=== PATIENT | female | born 1990 | race Caucasian/White ===

== ENCOUNTER 2018-07-09 10:24 | Inpatient (IN) ==
[2018-07-09] MEDS ORDERED: MEPERIDINE 50 MG/1 ML VIAL IV PRN (10:48)
[2018-07-09] MEDS ORDERED: ONDANSETRON 4 MG/2 ML VIAL IV PRN (10:48)
[2018-07-09] MEDS ORDERED: OXYTOCIN/LR 20 UNIT/1,000 ML BAG IV SCH (11:00)
[2018-07-09] MEDS ORDERED: LACTATED RINGERS 1,000 ML IV SCH (11:00)
[2018-07-09 11:16] LABS: Basophils % 0.3 % (0.0-0.8); Eosinophils # 0.1 10*3/uL (0.0-0.87); Eosinophils % 1.4 % (0.00-10.9); Hematocrit 33.8 VOL% (35.7-47.0); Hemoglobin 11.4 GM/DL (12.0-16.0); Immature Granulocytes % 0.2 %; Immature Granulocytes Absolute 0.02 #; Lymphocytes % 22.1 % (21.3-54.2); Mean Corpuscular HGB Conc 33.7 GM/DL (32-36); Mean Corpuscular Hemoglobin 30 PG (27-34); Mean Corpuscular Volume 88.9 FL (87-102); Mean Platelet Volume 10.3 FL (9.6-12.0); Monocytes # 0.6 10*3/uL (0.11-0.8); Monocytes % 6.8 % (1.7-12.7); Neutrophils # 6.4 10*3/uL (1.4-7.4); Neutrophils % 69.2 % (38.7-73.9); Platelet Count 273 T/CUMM (130-400); Red Cell Distribution Width 13.4 % (9.3-17.3); White Blood Count 9.2 T/CUMM (4-12)
[2018-07-09 11:42] LABS: Alanine Aminotransferase 9 U/L (13-56); Albumin 2.6 G/DL (3.4-5.0); Alkaline Phosphatase 114 U/L (45-117); Aspartate Amino Transferase 12 U/L (0-37); Bilirubin,Total < 0.39 MG/DL (0.2-1.0); Blood Urea Nitrogen 10 MG/DL (7-18); Calcium 8.9 MG/DL (8.5-10.1); Glucose 89 MG/DL (74-106); Osmolality,Calculated 270.8 MOS/KG (273-304); Potassium 3.9 MMOL/L (3.5-5.1); Sodium 137 MMOL/L (136-145); Total Protein 6.9 G/DL (6.4-8.3); Uric Acid 6.1 MG/DL (2.6-6.0)
[2018-07-09] MEDS ORDERED: INFLUENZA VIRUS VACCINE 0.5 ML SYRINGE IM ONE (11:45)
[2018-07-09] MEDS ORDERED: LACTATED RINGERS 1,000 ML IV ONE (11:49)
[2018-07-09] MEDS ORDERED: diphenhydrAMINE 50 MG/1 ML VIAL IV PRN ×2 (11:49)
[2018-07-09] MEDS ORDERED: NALOXONE 0.4 MG/ML VIAL IV PRN (11:49)
[2018-07-09] MEDS ORDERED: FAMOTIDINE 20 MG/2 ML VIAL IV ONE (11:49)
[2018-07-09] MEDS ORDERED: hydrOXYzine HCL 25 MG/1 ML VIAL IM PRN (11:49)
[2018-07-09] MEDS ORDERED: ePHEDrine 50 MG/ML AMP IV PRN (11:49)
[2018-07-09] MEDS ORDERED: PROMETHAZINE 25 MG/1 ML VIAL IM ONE (11:49)
[2018-07-09] MEDS ORDERED: CITRIC ACID/SODIUM CITRATE 30 ML UDCUP PO ONE (11:49)
[2018-07-09] MEDS ORDERED: fentaNYL 2 MCG/ROPIV 0.2% EPID 100 ML EPIDURAL SCH (12:00)
[2018-07-09] MEDS ORDERED: LIDOCAINE 1% 50 ML VIAL ONE (14:30)
[2018-07-09] MEDS ORDERED: METHYLERGONOVINE 0.2 MG/1 ML AMP ONE (14:30)
[2018-07-09] MEDS ORDERED: miSOPROStol 200 MCG TABLET ONE (14:30)
[2018-07-09 14:40] LABS: Apearance,Urine Slightly Hazy (Clear); Bacteria,Urine Occasional /HPF (Few); Bilirubin,Urine Negative (Negative); Blood, Urine Negative (Negative); Glucose,Urine (UA) Negative (Negative); Ketones,Urine 5 mg/dL (Negative); Mucus,Urine Occasional /LPF (Occasional); Nitrite,Urine Positive (Negative); Protein,Urine Negative; Squamous Epithelial Cell,Urine Occasional /HPF (0-10); Transitional Epi Cells,Urine Occasional /HPF (<1); Urine Color Yellow (Yellow); Urine Specific Gravity 1.011 (1.001-1.035); Urine Urobilinogen < 2.0 EU/DL (0.2-1.0); WBC,Urine 1 /HPF (0-6)
[2018-07-09 15:20] LABS: Cord Venous Blood HCO3 19.9 MMOL/L; Cord Venous Blood PO2 24.4
[2018-07-09 15:23] LABS: Cord Arterial Blood HCO3 17.4 MMOL/L
[2018-07-09] MEDS ORDERED: OXYTOCIN/LR 20 UNIT/1,000 ML BAG IV ONE (17:10)
[2018-07-09] MEDS ORDERED: oxyCODONE/ACETAMINOPHEN 5-325 MG TABLET PO PRN ×2 (19:04)
[2018-07-09] MEDS ORDERED: ACETAMINOPHEN/CODEINE 300-30 MG TABLET PO PRN (19:04)
[2018-07-09] MEDS ORDERED: LANOLIN 50% CREAM 0.3 OZ TUBE TOP PRN (19:04)
[2018-07-09] MEDS ORDERED: MEASLES/MUMPS/RUBELLA VACCINE 0.5 ML VIAL SUBCUT ONE (19:04)
[2018-07-09] MEDS ORDERED: WITCH HAZEL PADS 100/JAR TOP PRN (19:04)
[2018-07-09] MEDS ORDERED: HYDROCORTISONE 2.5% RECTAL CREAM 30 GM TUBE TOP PRN (19:04)
[2018-07-09] MEDS ORDERED: IBUPROFEN 800 MG TABLET PO PRN (19:04)
[2018-07-09] MEDS ORDERED: RHO(D) IMMUNE GLOBULIN 300 MCG SYRINGE IM ONE (19:04)
[2018-07-09] MEDS ORDERED: BISACODYL 10 MG SUPP RECTAL PRN (19:04)
[2018-07-09] MEDS ORDERED: DIPH/TET/ACEL PERT BOOSTER VACCINE 0.5 ML VIAL IM ONE (19:04)
[2018-07-09] MEDS ORDERED: ACETAMINOPHEN 325 MG TABLET PO PRN (19:04)
[2018-07-09] MEDS ORDERED: BENZOCAINE 20%/MENTHOL 0.5% SPRAY 56 GM CAN TOP PRN (19:04)
[2018-07-09] MEDS: DOCUSATE SODIUM 100 MG CAPSULE PO SCH (22:22)
[2018-07-10 05:00] LABS: Basophils % 0.3 % (0.0-0.8); Eosinophils # 0.1 10*3/uL (0.0-0.87); Hemoglobin 10.6 GM/DL (12.0-16.0); Immature Granulocytes % 0.4 %; Immature Granulocytes Absolute 0.05 #; Lymphocytes # 3.1 10*3/uL (1.4-4.0); Lymphocytes % 25.1 % (21.3-54.2); Mean Corpuscular HGB Conc 33.1 GM/DL (32-36); Mean Corpuscular Hemoglobin 29 PG (27-34); Mean Corpuscular Volume 88.9 FL (87-102); Mean Platelet Volume 10.6 FL (9.6-12.0); Monocytes # 0.9 10*3/uL (0.11-0.8); Monocytes % 7.1 % (1.7-12.7); Neutrophils # 8.2 10*3/uL (1.4-7.4); Neutrophils % 66.1 % (38.7-73.9); Platelet Count 252 T/CUMM (130-400); Red Cell Distribution Width 13.2 % (9.3-17.3); White Blood Count 12.3 T/CUMM (4-12)
[2018-07-10] MEDS: DOCUSATE SODIUM 100 MG CAPSULE PO SCH ×2 (10:00→20:24)
[2018-07-10] MEDS: CIPROFLOXACIN 500 MG TABLET PO SCH (18:45)
[2018-07-11] MEDS: CIPROFLOXACIN 500 MG TABLET PO SCH (05:46)
[2018-07-11 07:40] VITALS: BP 124/66
[2018-07-11] MEDS: DOCUSATE SODIUM 100 MG CAPSULE PO SCH (08:30)
== END 2018-07-11 12:20 | disposition home or self-care (01) | DRG 560 ==
LOC: N.LDOUT 10:24 → N.LD 10:25 → N.OB 20:51
PROVIDERS: ADMIT Obstetrics & Gynecology; ATTEND Obstetrics & Gynecology

== ENCOUNTER 2021-08-22 04:24 | Inpatient (IN) ==
[2021-08-22] MEDS ORDERED: MEPERIDINE 50 MG/1 ML VIAL IV PRN (04:44)
[2021-08-22] MEDS ORDERED: AMPICILLIN INJ 2,000 MG in SODIUM CHLORIDE 0.9% 100 ML IV ONE (04:47)
[2021-08-22] MEDS ORDERED: LACTATED RINGERS 1,000 ML IV SCH ×3 (05:00→08:00)
[2021-08-22] MEDS ORDERED: INFLUENZA VIRUS VACCINE 0.5 ML SYRINGE IM ONE (05:12)
[2021-08-22 05:28] LABS: Basophils % 0.2 % (0.0-0.8); Eosinophils # 0.1 10*3/uL (0.0-0.87); Hematocrit 31.9 VOL% (35.7-47.0); Hemoglobin 10.5 GM/DL (12.0-16.0); Immature Granulocytes % 0.6 %; Immature Granulocytes Absolute 0.08 #; Lymphocytes # 1.9 10*3/uL (1.4-4.0); Lymphocytes % 13.3 % (21.3-54.2); Mean Corpuscular HGB Conc 32.9 GM/DL (32-36); Mean Corpuscular Volume 88.4 FL (87-102); Mean Platelet Volume 10.1 FL (9.6-12.0); Monocytes % 7.7 % (1.7-12.7); Neutrophils % 77.2 % (38.7-73.9); Platelet Count 314 T/CUMM (130-400); Red Blood Count 3.61 MC/CUMM (3.8-5.5); Red Cell Distribution Width 13.2 % (9.3-17.3); White Blood Count 14.5 T/CUMM (4-12)
[2021-08-22] MEDS: ONDANSETRON 4 MG/2 ML VIAL IV PRN ×2 (05:53→13:29)
[2021-08-22 05:57] LABS: Alanine Aminotransferase 12 U/L (13-56); Albumin 2.5 G/DL (3.4-5.0); Alkaline Phosphatase 100 U/L (45-117); Aspartate Amino Transferase 12 U/L (0-37); Bilirubin,Total < 0.39 MG/DL (0.20-1.00); Blood Urea Nitrogen 9 MG/DL (7-18); Calcium 9.3 MG/DL (8.5-10.1); Carbon Dioxide 22 MMOL/L (21-32); Estimated Glom Filtration Rate 115 ML/MIN; Glucose 92 MG/DL (74-106); Osmolality,Calculated 271.8 MOS/KG (273-304); Potassium 3.7 MMOL/L (3.5-5.1); Sodium 137 MMOL/L (136-145)
[2021-08-22] MEDS ORDERED: ceFAZolin 2,000 MG/50 ML DUPLEX IV ONE (06:07)
[2021-08-22] MEDS ORDERED: CITRIC ACID/SODIUM CITRATE 30 ML UDCUP PO ONE (06:07)
[2021-08-22 06:10] LABS: Rubella Antibody IgG Result Reactive (NonReactive)
[2021-08-22 06:11] LABS: Hepatitis B Surface Ag Quant < 0.10 Index; Hepatitis B Surface Ag Result Non-Reactive (NonReactive)
[2021-08-22 06:17] LABS: HIV Antigen/Antibody Result Nonreactive (Nonreactive)
[2021-08-22] MEDS ORDERED: SODIUM CHLORIDE 0.9% 0 ML IV ONE (06:22)
[2021-08-22] MEDS ORDERED: miSOPROStoL 200 MCG TABLET ONE (06:22)
[2021-08-22] MEDS ORDERED: TRANEXAMIC ACID 1,000 MG/10 ML VIAL ONE (06:22)
[2021-08-22] MEDS ORDERED: METHYLERGONOVINE 0.2 MG/1 ML AMP ONE (06:23)
[2021-08-22] MEDS ORDERED: OXYTOCIN/LR 20 UNIT/1,000 ML BAG IV ONE ×3 (06:23→09:20)
[2021-08-22] MEDS ORDERED: CARBOPROST TROMETHAMINE 250 MCG/ML AMP IM ONE (06:23)
[2021-08-22] MEDS ORDERED: ONDANSETRON 4 MG/2 ML VIAL ONE (06:35)
[2021-08-22] MEDS ORDERED: BUPIVACAINE SPINAL 0.75% 2 ML AMP SPINAL ONE (06:35)
[2021-08-22 06:49] LABS: Bilirubin,Urine Negative (Negative); Blood, Urine Negative (Negative); Glucose,Urine (UA) Negative (Negative); Ketones,Urine Negative (Negative); Mucus,Urine Occasional /LPF (Occasional); Nitrite,Urine Positive (Negative); Protein,Urine Negative; RBC,Urine 3 /HPF (0-4); Squamous Epithelial Cell,Urine Occasional /HPF (0-10); Urine Appearance CLEAR (Clear); Urine Color Yellow (Yellow); Urine Specific Gravity 1.015 (1.001-1.035); Urine Urobilinogen < 2.0 EU/DL (<2.0)
[2021-08-22] MEDS ORDERED: propofoL 200 MG/20 ML VIAL IV ONE (07:14)
[2021-08-22] MEDS ORDERED: LIDOCAINE 2% 5 ML VIAL ONE (07:14)
[2021-08-22] MEDS ORDERED: KETOROLAC 30 MG/1 ML VIAL ONE (07:14)
[2021-08-22] MEDS ORDERED: ACETAMINOPHEN INJ 1,000 MG/100 ML VIAL IV ONE (07:14)
[2021-08-22] MEDS ORDERED: SEVOFLURANE 1 UNIT/15 MINUTE INH ONE (07:14)
[2021-08-22] MEDS ORDERED: SUCCINYLCHOLINE 200 MG/10 ML VIAL ONE (07:14)
[2021-08-22] MEDS ORDERED: LACTATED RINGERS 1,000 ML IV ONE (07:14)
[2021-08-22] MEDS ORDERED: fentaNYL 100 MCG/2 ML VIAL ONE (07:16)
[2021-08-22 07:27] LABS: Cord Arterial Blood HCO3 23.2 MMOL/L
[2021-08-22 07:30] LABS: Cord Venous Blood HCO3 23.3 MMOL/L; Cord Venous Blood PCO2 42.3 MMHG; Cord Venous Blood PO2 45.4
[2021-08-22] MEDS ORDERED: MAGNESIUM HYDROXIDE SUSP 30 ML UDCUP PO PRN (07:35)
[2021-08-22] MEDS ORDERED: RHO(D) IMMUNE GLOBULIN 300 MCG SYRINGE IM ONE (07:35)
[2021-08-22] MEDS ORDERED: ACETAMINOPHEN 325 MG TABLET PO PRN (07:35)
[2021-08-22] MEDS ORDERED: IBUPROFEN 800 MG TABLET PO PRN (07:35)
[2021-08-22] MEDS ORDERED: ONDANSETRON 4 MG/2 ML VIAL IV PRN (07:35)
[2021-08-22] MEDS ORDERED: SIMETHICONE CHEW 80 MG TABLET PO PRN (07:35)
[2021-08-22] MEDS ORDERED: AMPICILLIN INJ 1,000 MG in SODIUM CHLORIDE 0.9% 100 ML IV SCH (09:00)
[2021-08-22 09:05] LABS: Barbiturates Screen,Urine Negative (Negative); Benzodiazepines Screen,Urine Negative (Negative); Cannabinoid Screen,Urine Negative (Negative); Opiate Screen,Urine Negative (Negative); Phencyclidine Screen,Urine Negative (Negative)
[2021-08-22] MEDS ORDERED: ALUMINUM/MAGNES/SIMETH MAX STR 30 ML UDCUP PO PRN (10:49)
[2021-08-22] MEDS: KETOROLAC 30 MG/1 ML VIAL IV SCH ×2 (13:48→19:53)
[2021-08-22] MEDS ORDERED: ceFAZolin 2,000 MG in SODIUM CHLORIDE 0.9% 100 ML IV SCH (15:00)
[2021-08-22 15:02] LABS: Basophils % 0.1 % (0.0-0.8); Eosinophils # 0.1 10*3/uL (0.0-0.87); Eosinophils % 0.9 % (0.00-10.9); Hematocrit 28.7 VOL% (35.7-47.0); Hemoglobin 9.7 GM/DL (12.0-16.0); Immature Granulocytes % 0.3 %; Immature Granulocytes Absolute 0.05 #; Lymphocytes # 2.1 10*3/uL (1.4-4.0); Lymphocytes % 14.6 % (21.3-54.2); Mean Corpuscular HGB Conc 33.8 GM/DL (32-36); Mean Corpuscular Volume 87.8 FL (87-102); Mean Platelet Volume 10.2 FL (9.6-12.0); Monocytes % 5.9 % (1.7-12.7); Neutrophils % 78.2 % (38.7-73.9); Platelet Count 245 T/CUMM (130-400); Red Blood Count 3.27 MC/CUMM (3.8-5.5); Red Cell Distribution Width 13.2 % (9.3-17.3); White Blood Count 14.3 T/CUMM (4-12)
[2021-08-22] MEDS ORDERED: ceFAZolin 2,000 MG/50 ML DUPLEX IV SCH (16:00)
[2021-08-22] MEDS: ACETAMINOPHEN 500 MG TABLET PO SCH (19:54)
[2021-08-22] MEDS: DOCUSATE SODIUM 100 MG CAPSULE PO SCH (20:26)
[2021-08-23] MEDS: KETOROLAC 30 MG/1 ML VIAL IV SCH (01:52)
[2021-08-23] MEDS: ACETAMINOPHEN 500 MG TABLET PO SCH (01:54)
[2021-08-23 04:43] LABS: Basophils % 0.2 % (0.0-0.8); Eosinophils # 0.3 10*3/uL (0.0-0.87); Eosinophils % 2.4 % (0.00-10.9); Hematocrit 24.8 VOL% (35.7-47.0); Hemoglobin 8.1 GM/DL (12.0-16.0); Immature Granulocytes % 0.4 %; Immature Granulocytes Absolute 0.04 #; Lymphocytes # 1.9 10*3/uL (1.4-4.0); Lymphocytes % 17.9 % (21.3-54.2); Mean Corpuscular HGB Conc 32.7 GM/DL (32-36); Mean Corpuscular Volume 89.9 FL (87-102); Mean Platelet Volume 10.5 FL (9.6-12.0); Monocytes % 8.2 % (1.7-12.7); Neutrophils % 70.9 % (38.7-73.9); Platelet Count 224 T/CUMM (130-400); Red Blood Count 2.76 MC/CUMM (3.8-5.5); Red Cell Distribution Width 13.3 % (9.3-17.3); White Blood Count 10.7 T/CUMM (4-12)
[2021-08-23] MEDS: DOCUSATE SODIUM 100 MG CAPSULE PO SCH ×2 (08:43→20:51)
[2021-08-23] MEDS: MULTIVITAMIN (PRENATAL) TABLET PO SCH (08:43)
[2021-08-23] MEDS ORDERED: IBUPROFEN 600 MG TABLET PO PRN (20:44)
[2021-08-23] MEDS: IBUPROFEN 800 MG TABLET PO PRN (20:52)
[2021-08-24] MEDS: IBUPROFEN 800 MG TABLET PO PRN ×2 (05:11→20:36)
[2021-08-24] MEDS: DOCUSATE SODIUM 100 MG CAPSULE PO SCH ×2 (10:48→20:35)
[2021-08-24] MEDS: busPIRone 15 MG TABLET PO SCH ×2 (10:48→23:40)
[2021-08-24] MEDS: MULTIVITAMIN (PRENATAL) TABLET PO SCH (10:48)
[2021-08-24] MEDS ORDERED: traZODone 50 MG TABLET PO SCH (21:00)
[2021-08-25] MEDS: busPIRone 15 MG TABLET PO SCH ×2 (05:38→09:03)
[2021-08-25 08:19] VITALS: BP 111/71
[2021-08-25] MEDS: DOCUSATE SODIUM 100 MG CAPSULE PO SCH (09:03)
[2021-08-25] MEDS: MULTIVITAMIN (PRENATAL) TABLET PO SCH (09:03)
[2021-08-25] MEDS ORDERED: DIPH/TET/ACEL PERT BOOSTER VACCINE 0.5 ML VIAL IM ONE (10:11)
== END 2021-08-25 14:40 | disposition home or self-care (01) | DRG 540 ==
LOC: N.LD 04:24 → N.OB 10:18
PROVIDERS: ADMIT Obstetrics & Gynecology; ATTEND Obstetrics & Gynecology
PROC: LDCSECT (ICD-10-PCS; 2021-08-22 06:40)